=== PATIENT | female | born 1990 ===

== ENCOUNTER 2022-03-31 21:24 | Emergency (ER) | payer SELFPAY ==
[2022-03-31 21:34] VITALS: BP 117/91
== END 2022-04-01 02:33 | disposition left against medical advice (07) ==
LOC: ED 21:24
DX: J02.9 Acute pharyngitis, unspecified (principal); R09.89 Other specified symptoms and signs involving the circulatory and respiratory systems; Z53.21 Procedure and treatment not carried out due to patient leaving prior to being seen by health care provider